=== PATIENT | female | born 1930 ===

== ENCOUNTER → 2016-09-17 | Outpatient (REF) | payer MEDICARE ==
[~2016-09-17] MED LIST: ASPI325T PO; BISAC5TA PO; DOCU10ELUD PO; HYDROCODONE PO; PERCOCET PO; SENO8.6T9 PO; SYNT50TA PO; VITAMIN D PO
== END ==
LOC: M LAB REF 16:25
PROVIDERS: ATTEND Internal Medicine
DX: E83.52 Hypercalcemia (principal); R79.9 Abnormal finding of blood chemistry, unspecified; M54.16 Radiculopathy, lumbar region

== ENCOUNTER → 2017-04-04 | Outpatient (REF) | payer MEDICARE | LOC: M LAB REF 12:33 | PROVIDERS: ATTEND Internal Medicine | DX: E83.52 Hypercalcemia (principal) ==